=== PATIENT | female | born 1965 | race Hispanic/Latino ===

== ENCOUNTER 2024-07-27 04:09 | Inpatient (IN) | payer BC ==
[2024-07-27 04:52] VITALS: BMI 31.4
[2024-07-27] MEDS ORDERED: Calcium Carbonate 500 MG ChewTAB PO PRN (05:21)
[2024-07-27] MEDS ORDERED: Acetaminophen 650 MG Suppository PR PRN (05:21)
[2024-07-27] MEDS ORDERED: Ondansetron ODT 4 MG TAB PO PRN (05:21)
[2024-07-27] MEDS: Ondansetron PF 4 MG/2 ML Vial IVP PRN (05:46)
[2024-07-27 06:10] LABS: Hemoglobin 14.7 g/dL (12.0-16.0); Mean Corpuscular HGB CONC 33.4 g/dL (32.0-36.0); Mean Corpuscular Hemoglobin 30.8 pg (27.0-31.0); Mean Corpuscular Volume 92.1 fL (78.0-98.0); Mean Platelet Volume 11.5 fL (7.4-10.4); Platelet Count 241 10x3/uL (130-400); RBC Distribution Width 14.2 % (11.5-14.5); Red Blood Cell (RBC) Count 4.78 mill/uL (4.20-5.40)
[2024-07-27 06:18] LABS: ALT (SGPT) 37 U/L (8-55); AST (SGOT) 44 U/L (5-34); Albumin 3.9 g/dL (3.5-5.0); Alkaline Phosphatase 88 U/L (40-110); Anion Gap 14 mmol/L (10-20); BUN (Urea Nitrogen) 9 mg/dL (9.8-20.1); Bilirubin, Total 0.3 mg/dL (0.2-1.2); Calc. Creatinine Clearance 118 mL/min (70-130); Calcium 8.5 mg/dL (7.8-10.44); Carbon Dioxide 22 mmol/L (22-29); Chloride 109 mmol/L (98-107); Estimated GFR 102; Globulin 3.8 g/dL (2.4-3.5); Glucose 165 mg/dL (70-105); Potassium 4.2 mmol/L (3.5-5.1); Protein, Total 7.7 g/dL (6.0-8.3); Sodium 141 mmol/L (136-145)
[2024-07-27 06:43] LABS: Band 3 % (5-11); Lymphocytes 9 % (21-51); Monocytes 1 % (0-10); Neutrophil 87 % (42-75); Platelet Adequacy Comment Platelets Normal; Polychromasia SLIGHT = 2-3 cells HPF (0-2)
[2024-07-27] MEDS: Famotidine/PF 20 mg/2ml Vial SLOW IVP SCH (08:23)
[2024-07-27] MEDS: Famotidine 20 MG TAB PO SCH (08:23)
[2024-07-27] MEDS ORDERED: Morphine 4 MG/ML VIAL SLOW IVP PRN (08:58)
[2024-07-27] MEDS: cefTRIAXone\\ROCEPHIN 1 GM in Sodium Chloride 0.9% 100 ML IVPB SCH (09:13)
[2024-07-27] MEDS: metroNIDAZOLE 500 MG in Premix 1 BAG IVPB SCH (10:23)
[2024-07-27] MEDS: metroNIDAZOLE 500 MG (100 mL) BAG ONE (17:22)
[2024-07-27] MEDS: Morphine 2 MG/ML VIAL SLOW IVP PRN (18:47)
[2024-07-28] MEDS: Acetaminophen 325 MG TAB PO PRN (00:02)
[2024-07-28 07:00] LABS: Calc. Creatinine Clearance 86 mL/min (70-130); Estimated GFR 73
[2024-07-28 07:01] LABS: Anion Gap 11 mmol/L (10-20); BUN (Urea Nitrogen) 12 mg/dL (9.8-20.1); Calcium 8.4 mg/dL (7.8-10.44); Carbon Dioxide 27 mmol/L (22-29); Chloride 105 mmol/L (98-107); Glucose 119 mg/dL (70-105); Potassium 4.3 mmol/L (3.5-5.1); Sodium 139 mmol/L (136-145)
[2024-07-28] MEDS ORDERED: MD-Gastroview 120 ML BOT ONE (07:19)
[2024-07-28] MEDS: Lactated Ringer's 1,000 ML IV SCH (20:24)
[2024-07-29 04:49] LABS: Hematocrit 42.2 % (36.0-47.0); Hemoglobin 13.8 g/dL (12.0-16.0); Mean Corpuscular HGB CONC 32.7 g/dL (32.0-36.0); Mean Corpuscular Hemoglobin 30.3 pg (27.0-31.0); Mean Corpuscular Volume 92.7 fL (78.0-98.0); Mean Platelet Volume 11.6 fL (7.4-10.4); Platelet Count 254 10x3/uL (130-400); RBC Distribution Width 14.8 % (11.5-14.5); Red Blood Cell (RBC) Count 4.55 mill/uL (4.20-5.40)
[2024-07-29 05:02] LABS: Anion Gap 10 mmol/L (10-20); BUN (Urea Nitrogen) 12 mg/dL (9.8-20.1); Calc. Creatinine Clearance 118 mL/min (70-130); Carbon Dioxide 26 mmol/L (22-29); Chloride 107 mmol/L (98-107); Potassium 3.9 mmol/L (3.5-5.1); Sodium 139 mmol/L (136-145)
[2024-07-29 05:03] LABS: Calcium 8.2 mg/dL (7.8-10.44); Estimated GFR 102; Glucose 121 mg/dL (70-105)
[2024-07-29 06:37] LABS: Bacteria/HPF None Seen HPF (None Seen); Bilirubin Negative (Negative); Blood, Urine Negative (Negative); CAUTI Indications for Culture Dysuria,urgency,freq; Clarity Clear (Clear); Glucose, Urine (Dipstick) Normal (Negative); Ketone, Urine Trace mg/dL (Negative); Leukocyte 25 Leu/uL (Negative); Nitrite Negative (Negative); Protein, Urine (Dipstick) 20 mg/dL (Neg-Trace); RBC/HPF 0-3 HPF (0-3); Specific Gravity, Urine 1.038 (1.002-1.036); Urobilinogen Normal mg/dL (Less than 2); pH, Urine 5.5 (5.0-9.0)
[2024-07-29 06:39] LABS: Urine Culture Reflex No No
[2024-07-29] MEDS: Sertraline 25 MG TAB PO SCH (08:33)
[2024-07-29] MEDS: Losartan 25 MG TAB PO SCH (08:33)
[2024-07-29] MEDS: Rosuvastatin 10 MG TAB PO SCH (08:33)
[2024-07-30 04:44] LABS: Hemoglobin 11.7 g/dL (12.0-16.0); Mean Corpuscular HGB CONC 32.5 g/dL (32.0-36.0); Mean Corpuscular Hemoglobin 30.3 pg (27.0-31.0); Mean Corpuscular Volume 93.3 fL (78.0-98.0); Mean Platelet Volume 11.9 fL (7.4-10.4); Platelet Count 192 10x3/uL (130-400); RBC Distribution Width 14.6 % (11.5-14.5); Red Blood Cell (RBC) Count 3.86 mill/uL (4.20-5.40)
[2024-07-30 05:18] LABS: Anion Gap 8 mmol/L (10-20); BUN (Urea Nitrogen) 11 mg/dL (9.8-20.1); Calc. Creatinine Clearance 115 mL/min (70-130); Calcium 7.8 mg/dL (7.8-10.44); Carbon Dioxide 27 mmol/L (22-29); Chloride 108 mmol/L (98-107); Estimated GFR 101; Glucose 94 mg/dL (70-105); Potassium 3.4 mmol/L (3.5-5.1); Sodium 140 mmol/L (136-145)
[2024-07-30 08:35] VITALS: BP 139/85; TEMP 98.2
== END 2024-07-30 13:18 | disposition home or self-care (01) | DRG 388 ==
LOC: T4-B 04:09 → OBSVTOIN 07-28 14:37
PROVIDERS: ADMIT Student in an Organized Health Care Education/Training Program; ATTEND Internal Medicine
DX: K56.609 Unspecified intestinal obstruction, unspecified as to partial versus complete obstruction (principal); A41.9 Sepsis, unspecified organism; E87.20 Acidosis, unspecified; K52.9 Noninfective gastroenteritis and colitis, unspecified; I10 Essential (primary) hypertension; E78.5 Hyperlipidemia, unspecified; Z90.49 Acquired absence of other specified parts of digestive tract; Z79.899 Other long term (current) drug therapy
CPT/HCPCS: 36415; 74018; 74250; 80048; 80053; 81001; 85025; 85027; 96374; 96375; 96376; G0378; J0696; J0780; J2272; J2405; J3490; J7120; Q9963